=== PATIENT | male | born 1975 | race Caucasian/White ===

== ENCOUNTER 2024-02-17 03:52 | Emergency (ER) | payer SELFPAY ==
--- NOTE | ~2024-02-17 | XR_ITS ---
Portable chest x-ray Comparison: None Clinical History: Chest pain Findings: Lungs are clear, without focal consolidation or pleural effusion. Cardiomediastinal silho uette is unremarkable. There are rib fracture deformities of the right sixth and seventh ribs, likely chronic. Impression: Clear lungs. Fracture deformities of the right sixth and seventh ribs, likely chronic. Reviewed, dictated and finalized at location . Impression: Clear lungs. Fracture deformities of the right sixth and seventh ribs, likely chronic.
--- NOTE | ~2024-02-17 | CT_ITS ---
CT of the Abdomen and Pelvis: Indication: Abdominal pain Technique: 2.5 mm axial scans were obtained through the abdomen and pelvis following intravenous adm inistration of 100 cc of Omnipaque 350. Dose reduction technique was used on this scan by utilizing a utomated exposure control and iterative reconstruction technique. The dose-length product (DLP) was 6 66.73 mGy-cm. Findings: Scans through the lung bases are unremarkable. The liver, spleen, pancreas, gallbladder, adrenals and kidneys are within normal limits. No evidence of aortic aneurysm. No lymphadenopathy. No bowel obstruction or bowel wall thickening. There is no evidence to suggest acute appendicitis. Images through the pelvis were performed. Urinary bladder unremarkable. No pelvic mass seen. No ascit es. Impression: No significant abnormalities seen. Reviewed, dictated and finalized at location . Impression: No significant abnormalities seen.
--- NOTE | 2024-02-17 03:55 | ECG_ITS ---
SEE SCANNED COPY FOR CONFIRMED REPORT MTDD
[2024-02-17 04:05] VITALS: BP 123/95; PULSE 117; RESP 16; O2SAT 99
[2024-02-17 04:11] VITALS: BP 116/96; PULSE 114; RESP 24; TEMP 36.3; O2SAT 98
--- NOTE | 2024-02-17 04:14 | ED.CHESTPAIN ---
HPI - Chest Pain General Chief Complaint: Chest Pain Stated Complaint: ABD pain, CP, SOB, swallowed drugs. Time Seen by Provider: 02/17/24 04:00 Source: patient Mode of arrival: other (Police) Limitations: no limitations History of Present Illness HPI narrative: 48-year-old male presenting for chest and abdominal pain. Started after he ingested some magic mushrooms and what he thought was a small bag of amphetamine. He then was found by police banging on doors of houses around him. He said he was partying with friends when he took the drugs. Complaining of feeling like his chest is hurting and his upper abdomen is hurting. Related Data Home Medications Medication Instructions Recorded Confirmed No Home Medications 02/17/24 02/17/24 Allergies Allergy/AdvReac Type Severity Reaction Status Date / Time No Known Allergies Allergy Verified 02/17/24 03:54 Review of Systems Review of Systems: All systems reviewed & are unremarkable except as noted in HPI and below Exam Narrative: Constitutional: Generally well appearing, no acute distress. Tachycardic. Anxious Head: Atraumatic, no deformities. Eyes: Pupils equal, round, and reactive to light. Pupils 4 mm Neck: Supple, no tracheal deviation, no JVD. ENMT: Mucous membranes moist Cardiovascular: S1, S2 auscultated. No murmurs, rubs, or gallops. No S3/S4. Normal Distal pulses. No peripheral edema. Respiratory: Lung sounds equal. No wheezes, rales, or rhonchi. Gastrointestinal: Abdomen was soft and non-tender. Non-distended. No rebound or guarding. Genitourinary: Deferred Musculoskeletal: Normal muscle tone and bulk. No obvious deformities or tenderness over extremities. Skin: No rashes. Neurological: Strength 5/5 in extremities. Cranial nerves I-XII grossly intact. Distal sensation intact. Mental Status: Awake, alert and oriented x3. Follows commands Course Vital Signs Vital signs: Vital Signs Oxygen Delivery Room Air 02/17/24 04:02 Temperature 36.3 C L 02/17/24 04:11 Pulse Rate 94 02/17/24 05:41 Respiratory Rate 13 02/17/24 05:41 Blood Pressure 118/80 02/17/24 05:41 Pulse Oximetry 97 02/17/24 05:41 Oxygen Delivery Room Air 02/17/24 04:02 MDM - Chest Pain MDM Narrative Medical decision making narrative: 48-year-old male presenting for concern for chest pain and abdominal pain following drug ingestion with magic mushrooms as well as amphetamine. He swallowed a small bag of amphetamine. On exam is tachycardic, seems a bit anxious but is alert and oriented. Normal cardio respiratory exam apart from the tachycardia. Abdomen is soft without tenderness. My concern is for stimulant induced coronary disease primarily, drug overdose however he does appear to not be in any overdose today currently. Obtaining cardiac workup, CT abdomen pelvis due to his pain and giving him fluids, 2 mg IV Ativan to help with the stimulant intoxication and tachycardia. EKG obtained at 0406 shows sinus tachycardia rate 122. Normal intervals. No ST elevation depression. Impression: Sinus tachycardia, no STEMI Labs and imaging reviewed. Leukocytosis present, consistent potentially with inflammation secondary to his drug use. CT was negative. Troponin negative. Patient resting comfortably, currently sleeping. Will be discharged to police custody. Return precautions were given to the patient include any new or worsening symptoms or development of and not limited to any chest pain, shortness of breath, lightheadedness, abdominal pain, fevers, chills. Patient understands and agrees. They are to follow-up with her PCP. All questions were answered. I reviewed the patient's vital signs, history, allergies, and labs and imaging workup. Lab Data 02/17/24 04:20 02/17/24 04:20 Labs: Lab Results 02/17/24 Range/Units 04:20 WBC 17.1 H (4.5-10.0) K/mm3 RBC 5.24 (4.6-6.20) M/mm3 Hgb 16.2 (14.0-18.0) g/dL Hct
[2024-02-17] MEDS: SODIUM CHLORIDE 0.9% IV 1,000 ML 999 ML IV CONT (04:18)
[2024-02-17] MEDS: LORazepam INJ (*CRX) 2 MG/ML VIAL IV PUSH (04:19)
[2024-02-17 04:40] LABS: Basophils Absolute Auto 0.1 K/mm3 (0.0-0.1); Basophils Percent Auto 0.3 % (0.2-1.2); Eosinophils Percent Auto 0.2 % (0-4.4); Hematocrit 48.2 % (42.0-52.0); Hemoglobin 16.2 g/dL (14.0-18.0); Immature Granulocyte Absolute 0.12 K/mm3 (0.00-0.031); Immature Granulocyte Percent A 0.7 % (0-0.5); Mean Corpuscular HGB Conc 33.6 g/dl (32-36); Mean Corpuscular Hemoglobin 30.9 pg (26-34); Mean Platelet Volume 11.6 fl (7.4-10.4); Monocytes Absolute Auto 0.7 K/mm3 (0.1-0.6); Monocytes Percent Auto 4.3 % (2.6-8.5); Neutrophils Absolute Auto 14.4 K/mm3 (1.3-6.7); Neutrophils Percent Auto 84.5 % (45.5-73.1); Platelet Count Result 389 k/mm3 (150-375); Red Blood Count 5.24 M/mm3 (4.6-6.20); Red Cell Distribution Width 12.7 % (11.5-14.5); White Blood Count 17.1 K/mm3 (4.5-10.0)
[2024-02-17 04:46] VITALS: BP 109/75; PULSE 106; RESP 20; O2SAT 93
[2024-02-17 05:03] LABS: Troponin I < 0.012 ng/mL (0.000-0.034)
[2024-02-17 05:08] LABS: Alanine Aminotransferase 33 U/L (6-50); Albumin Level 5.2 g/dL (3.5-5.1); Alkaline Phosphatase 86 U/L (38-126); Anion Gap 17 mmol/L (4-12); Aspartate Amino Transferase 49 U/L (17-59); Bilirubin,Total 0.9 mg/dL (0.2-1.3); Blood Urea Nitrogen 30 mg/dL (9-20); Carbon Dioxide 23 mmol/L (22-30); Chloride 101 mmol/L (98-107); Estimated CRCL calculation 48 ml/min; Estimated Glomerular Filt Rate 38; Glucose 167 mg/dL (65-110); Lipase 163 U/L (23-300); Potassium 4.9 mmol/L (3.4-5.0); Sodium 141 mmol/L (137-145)
[2024-02-17 05:41] VITALS: BP 118/80; PULSE 94; RESP 13; O2SAT 97
== END 2024-02-17 06:51 ==
PROVIDERS: Emergency Provider Emergency Medicine
DX: R07.89 Other chest pain (principal); F15.10 Other stimulant abuse, uncomplicated
CPT/HCPCS: 36415; 71045; 74177; 80053; 83690; 84484; 85025; 93005; 96361; 96374; 99284; J2060; J7030; Q9967